=== PATIENT | male | born 1945 | race Asian ===

== ENCOUNTER 2022-11-22 16:24 | Inpatient (IN) | payer MEDICAID ==
[~2022-11-22] VITALS: Ht 157.5 cm; Wt 78.2 kg
[2022-11-22] MEDS ORDERED: ONDANSETRON HCL 4 MG/2 ML VIAL IVP ONE (16:45)
[2022-11-22] MEDS ORDERED: NACL 0.9% 1,000 ML IV ONE ×2 (16:45→18:45)
[2022-11-22 16:47] VITALS: BP_SYST 91
[2022-11-22 17:13] LABS: BASOPHILS # (AUTO) 0.1 K/uL (0.0-0.2); BASOPHILS % (AUTO) 0.8 % (0.0-2.0); EOSINOPHILS # (AUTO) 0.2 K/uL (0.0-0.4); EOSINOPHILS % (AUTO) 2.3 % (0.0-4.0); HEMATOCRIT 40.5 % (36-54); HEMOGLOBIN 13.6 g/dL (14.0-18.0); LYMPHOCYTES # (AUTO) 1.3 K/uL (1.0-5.5); LYMPHOCYTES % (AUTO) 13.6 % (20.5-51.5); MEAN CORPUSCULAR HEMOGLOBIN 30 pg (27-31); MEAN CORPUSCULAR HGB CONC 34 % (32-36); MEAN CORPUSCULAR VOLUME 91 fL (79.0-98.0); MONOCYTES # (AUTO) 1.3 K/uL (0.0-1.0); MONOCYTES % (AUTO) 13.2 % (1.7-9.3); NEUTROPHILS # (AUTO) 6.9 K/uL (1.8-7.7); NEUTROPHILS % (AUTO) 70.1 % (40.0-70.0); PLATELET COUNT (AUTO) 236 K/uL (130-430); RED BLOOD CELL COUNT(AUTO) 4.46 MIL/uL (4.2-6.2); RED CELL DISTRIBUTION WIDTH 13.4 % (9.0-15.0); WHITE BLOOD COUNT (AUTO) 9.9 K/uL (4.8-10.8)
[2022-11-22 17:22] LABS: ANION GAP 12 (5-15); CALCIUM 8.7 mg/dL (8.4-11.0); CHLORIDE 108 mmol/L (98-107); GLUCOSE 118 mg/dL (70-99); UREA NITROGEN, BLOOD 22 mg/dL (8-21)
[2022-11-22 17:30] LABS: ALANINE AMINOTRANSFERASE 26 U/L (12-78); ALBUMIN 3.3 g/dL (3.4-4.8); ASPARTATE AMINOTRANSFERASE 20 U/L (10-37); TOTAL BILIRUBIN 0.5 mg/dL (0.0-1.0)
[2022-11-22] MEDS ORDERED: KETOROLAC TROMETHAMINE 30 MG VIAL IVP ONE (19:00)
[2022-11-22] MEDS ORDERED: ACETAMINOPHEN 325 MG TABLET PO PRN (21:45)
[2022-11-22] MEDS ORDERED: ONDANSETRON HCL 4 MG/2 ML VIAL IVP PRN (21:45)
[2022-11-22] MEDS ORDERED: LORazepam 2 MG/ML VIAL IVP PRN (21:45)
[2022-11-22] MEDS ORDERED: HYDROcodone/ACETAMIN 10-325 MG TAB PO PRN (21:45)
[2022-11-22] MEDS ORDERED: NALOXONE HCL 0.4 MG/ML AMP (NARCAN) IVP PRN ×2 (21:45)
[2022-11-22] MEDS ORDERED: HYDROcodone/ACETAMIN 5-325 MG TAB (NORCO/ VICODIN) PO PRN (21:45)
[2022-11-22 22:18] VITALS: BP_SYST 122
[2022-11-23] MEDS: D5/0.45 NS 1,000 ML IV SCH ×3 (01:02→18:28)
[2022-11-23 01:08] VITALS: BP_SYST 109
[2022-11-23] MEDS ORDERED: ALBUTEROL SULFATE 0.083% 2.5 MG/3 ML VIAL.NEB INH PRN (04:15)
[2022-11-23 05:21] VITALS: BP_SYST 109
[2022-11-23 06:03] LABS: BASOPHILS % (AUTO) 0.7 % (0.0-2.0); EOSINOPHILS # (AUTO) 0.3 K/uL (0.0-0.4); EOSINOPHILS % (AUTO) 4.7 % (0.0-4.0); HEMATOCRIT 35.7 % (36-54); HEMOGLOBIN 12.1 g/dL (14.0-18.0); LYMPHOCYTES # (AUTO) 1.4 K/uL (1.0-5.5); LYMPHOCYTES % (AUTO) 21.2 % (20.5-51.5); MEAN CORPUSCULAR HEMOGLOBIN 31 pg (27-31); MEAN CORPUSCULAR HGB CONC 34 % (32-36); MEAN CORPUSCULAR VOLUME 90 fL (79.0-98.0); NEUTROPHILS % (AUTO) 59.4 % (40.0-70.0); PLATELET COUNT (AUTO) 205 K/uL (130-430); RED BLOOD CELL COUNT(AUTO) 3.95 MIL/uL (4.2-6.2); RED CELL DISTRIBUTION WIDTH 13.1 % (9.0-15.0); WHITE BLOOD COUNT (AUTO) 6.8 K/uL (4.8-10.8)
[2022-11-23 06:42] LABS: ALANINE AMINOTRANSFERASE 23 U/L (12-78); ALBUMIN 2.9 g/dL (3.4-4.8); ANION GAP 9 (5-15); ASPARTATE AMINOTRANSFERASE 15 U/L (10-37); CALCIUM 7.4 mg/dL (8.4-11.0); CHLORIDE 110 mmol/L (98-107); CHOLESTEROL 107 mg/dL (<200); CREATININE 1.25 mg/dL (0.55-1.30); GLUCOSE 125 mg/dL (70-99); HDL CHOLESTEROL 44 mg/dL (>45); THYROID STIMULATING HORMONE 0.83 uIu/mL (0.34-4.82); TOTAL BILIRUBIN 0.5 mg/dL (0.0-1.0); TRIGLYCERIDES 67 mg/dL (30-150); UREA NITROGEN, BLOOD 26 mg/dL (8-21)
[2022-11-23 07:53] VITALS: BP_SYST 107
[2022-11-23 12:00] VITALS: BP_SYST 113
[2022-11-23 16:00] VITALS: BP_SYST 120
[2022-11-23 20:00] VITALS: BP_SYST 105
[2022-11-24] VITALS: BP_SYST 95
[2022-11-24] MEDS: D5/0.45 NS 1,000 ML IV SCH (03:45)
[2022-11-24 05:25] LABS: BASOPHILS # (AUTO) 0.1 K/uL (0.0-0.2); BASOPHILS % (AUTO) 1.6 % (0.0-2.0); EOSINOPHILS # (AUTO) 0.4 K/uL (0.0-0.4); EOSINOPHILS % (AUTO) 6.5 % (0.0-4.0); HEMATOCRIT 36.8 % (36-54); HEMOGLOBIN 12.4 g/dL (14.0-18.0); LYMPHOCYTES # (AUTO) 1.7 K/uL (1.0-5.5); LYMPHOCYTES % (AUTO) 25.9 % (20.5-51.5); MEAN CORPUSCULAR HEMOGLOBIN 31 pg (27-31); MEAN CORPUSCULAR HGB CONC 34 % (32-36); MEAN CORPUSCULAR VOLUME 91 fL (79.0-98.0); MONOCYTES # (AUTO) 0.9 K/uL (0.0-1.0); MONOCYTES % (AUTO) 13.2 % (1.7-9.3); NEUTROPHILS # (AUTO) 3.5 K/uL (1.8-7.7); NEUTROPHILS % (AUTO) 52.8 % (40.0-70.0); PLATELET COUNT (AUTO) 223 K/uL (130-430); RED BLOOD CELL COUNT(AUTO) 4.05 MIL/uL (4.2-6.2); RED CELL DISTRIBUTION WIDTH 13.1 % (9.0-15.0); WHITE BLOOD COUNT (AUTO) 6.6 K/uL (4.8-10.8)
[2022-11-24 05:30] LABS: ALANINE AMINOTRANSFERASE 24 U/L (12-78); ALBUMIN 3.1 g/dL (3.4-4.8); ANION GAP 6 (5-15); ASPARTATE AMINOTRANSFERASE 14 U/L (10-37); CALCIUM 8.4 mg/dL (8.4-11.0); CHLORIDE 108 mmol/L (98-107); GLUCOSE 115 mg/dL (70-99); TOTAL BILIRUBIN 0.7 mg/dL (0.0-1.0); UREA NITROGEN, BLOOD 15 mg/dL (8-21)
[2022-11-24 08:00] VITALS: BP_SYST 112
[2022-11-24 11:22] VITALS: BP_SYST 105
[2022-11-24] MEDS: POTASSIUM CHLORIDE 10 MEQ in NACL 0.9% 1,000 ML IV SCH ×2 (11:34→22:39)
[2022-11-24 15:06] VITALS: BP_SYST 121
[2022-11-24 20:00] VITALS: BP_SYST 107
[2022-11-24 23:30] VITALS: BP_SYST 115
[2022-11-25 00:39] VITALS: BP_SYST 123
[2022-11-25 08:00] VITALS: BP_SYST 124
[2022-11-25 11:12] VITALS: BP_SYST 124
[2022-11-25 13:06] LABS: CREATININE, URINE 52.7 mg/dL (Not Estab.); MICROALBUMIN URINE RANDOM < 3.0 ug/mL (Not Estab.); MICROALBUMIN/CREAT RATIO, UR <6 mg/g creat (0-29)
== END 2022-11-25 11:43 | disposition home or self-care (01) | DRG 201 ==
LOC: SED 16:24 → STU 19:33 → SMU 11-24 11:08
PROVIDERS: ADMIT Specialist; ATTEND Specialist
PROC: 4A10X4Z Monitoring of Central Nervous Electrical Activity, External Approach (ICD-10-PCS; principal; 2022-11-23)
DX: I47.1 Supraventricular tachycardia (principal); N17.0 Acute kidney failure with tubular necrosis; E44.1 Mild protein-calorie malnutrition; R65.10 Systemic inflammatory response syndrome (SIRS) of non-infectious origin without acute organ dysfunction; I11.9 Hypertensive heart disease without heart failure; E86.0 Dehydration; Z68.31 Body mass index [BMI] 31.0-31.9, adult; E66.9 Obesity, unspecified; E11.9 Type 2 diabetes mellitus without complications; E78.5 Hyperlipidemia, unspecified
CPT/HCPCS: 36415; 70450-TC; 70551; 71045; 71100; 76376; 76770; 80053; 80061; 82043; 82570; 83735; 83880; 84100; 84443; 84484; 84560; 85025; 87081; 93005; 93306; 93880; 94760; 95816; 96361; 96374; 96375; 99285; G0378; J1885; J2405; J3480; J7030